=== PATIENT | male | born 2000 | race Caucasian/White ===

== ENCOUNTER 2023-10-24 21:53 | Emergency (ER) | payer BC, SELFPAY ==
[2023-10-24 21:56] VITALS: BP 142/86
--- NOTE | 2023-10-24 23:07 | ED.GENMED ---
History of Present Illness
General
Chief Complaint: Head Injury
Time Seen by Provider: 10/24/23 22:35
Travel History
Have you had any contact with someone who has COVID-19?: No
Do you have any symptoms of coronavirus? Fever > 100 degrees, chills, cough, shortness of breath, sore throat, loss of taste or smell, muscle aches, or headache?: No
Past History
Past History
ED Past Medical History: Seizures (takes Keppra. Last seizure 2 years ago) and Other (headaches)
Social History
Tobacco: Non-smoker
Alcohol: Occasional
Personal: Single
Living: with family
Employment: Employed
Course
Orders/Labs/Results
Orders:
Orders
10/24/23 22:45
CT Head W/o Iv Contrast Urgent
Comment:
Reason For Exam: trauma
Vital Signs
Initial and Last Documented VS:
Initial Vital Signs
Temp Pulse Resp BP Pulse Ox
98.1 F 102 18 142/86 100
10/24/23 21:56 10/24/23 21:56 10/24/23 21:56 10/24/23 21:56 10/24/23 21:56
Last Documented Vital Signs
Temp Pulse Resp BP Pulse Ox
98.1 F 102 18 142/86 100
10/24/23 21:56 10/24/23 21:56 10/24/23 21:56 10/24/23 21:56 10/24/23 21:56
ED Attending Note
-
Portions of this chart may have been created with voice recognition software.� Occasional wrong word or��sound alike� substitutions may have occurred due to the inherent limitations of voice recognition software.
Discharge Plan
Departure
Prescriptions:
No Action
levetiracetam 500 MG tablet
500 mg PO BID Qty: 60 0RF
Referrals:
Morgan Quinn, DO [Family Provider] -
Interventions
Interventions:
*Risk Screen - Suicide Last Done: 10/24/23 21:56
*Neglect/Abuse Screening Last Done: 10/24/23 21:56
Discharge Date and Time
Print Language: MALAGASY
--- NOTE | 2023-10-24 23:08 | ED.GENMED ---
History of Present Illness
General
Chief Complaint: Head Injury
Source: patient
Exam Limitations: none
Time Seen by Provider: 10/24/23 22:35
Nursing documentation reviewed up to this point in time: agreed with
Travel History
Have you had any contact with someone who has COVID-19?: No
Do you have any symptoms of coronavirus? Fever > 100 degrees, chills, cough, shortness of breath, sore throat, loss of taste or smell, muscle aches, or headache?: No
History of Present Illness
History of Present Illness:
Collided with another player while playing basketball. Hit by other players elbow on back of head. No LOC. Complains of shooting head pain. Brought self to ED for eval.
Past History
Past History
ED Past Medical History: Seizures (takes Keppra. Last seizure 2 years ago) and Other (headaches)
Social History
Tobacco: Non-smoker
Alcohol: Occasional
Personal: Single
Living: with family
Employment: Employed
Review of Systems
Review of Systems
Allergies reviewed?: Yes
All Other Systems: ROS reviewed and negative except as documented in HPI and ROS
Constitutional: Reports no symptoms
EENT: Reports no symptoms
Respiratory: Reports no symptoms
Cardiac: Reports no symptoms
ABD/GI: Reports no symptoms
: Reports no symptoms
Musculoskeletal: Reports no symptoms
Skin: Reports no symptoms
Neurological: Reports headache
Psychiatric: Reports no symptoms
Phy Exam
General Physical Exam
General Presentation: well appearing and no apparent distress
General age: appears stated age
General Skin: warm and dry
General Habitus: normal
General Mental: alert
ENT Exam
ENT Exam: EOMI, TM's normal, neck supple and normocephalic
Eye Exam
Eye Exam: PERRL, EOMI, conjunctiva normal and globe normal
Neurological Exam
Neurological Exam: alert, oriented x3, CN II-XII intact, no motor deficits, no sensory deficits, speech normal and normal gait
John Coma Scale
Eye Opening: Spontaneous
Verbal Response: Oriented
Motor Response: Obeys Commands
GCS Total Score: 15
Mental
Mental Status: oriented to person, oriented to place, oriented to time and usual mental status
Describe Speech: normal speech
Cranial
Cranial Nerves: normal
EOM (CN3/4/6): intact
Motor
Seizure Activity: none
Gait: normal
Tremors: none
Other Movement Disorders: none
Right upper extremity: 4
Right lower extremity: 4
Left upper extremity: 4
Left lower extremity: 4
Bilateral upper extremities: 4
Bilateral lower extremities: 4
Sensory
Sensory Exam: intact
Cerebellar
Cerebellar Function: normal Romberg test
Musculoskeletal Exam
Musculoskeletal Exam: full ROM and neuro vasc intact
Skin Exam
Skin Exam: normal color, warm/dry and no rash
Psychiatric Exam
Psychiatric Exam: normal mood/affect
Course
Orders/Labs/Results
Orders:
Orders
10/24/23 22:45
CT Head W/o Iv Contrast Urgent
Comment:
Reason For Exam: trauma
Vital Signs
Initial and Last Documented VS:
Initial Vital Signs
Temp Pulse Resp BP Pulse Ox
98.1 F 102 18 142/86 100
10/24/23 21:56 10/24/23 21:56 10/24/23 21:56 10/24/23 21:56 10/24/23 21:56
Last Documented Vital Signs
Temp Pulse Resp BP Pulse Ox
98.1 F 88 18 134/83 100
10/24/23 21:56 10/24/23 23:48 10/24/23 21:56 10/24/23 23:48 10/24/23 21:56
*Radiology
Radiology exam reviewed: radiology read reviewed
*Pulse Oximetry
Patient hypoxic: no
*Critical Care Note
Total Time (30-74mins, 75-104mins- exclusive of procedures): Not Applicable
ED Attending Note
-
Portions of this chart may have been created with voice recognition software.� Occasional wrong word or��sound alike� substitutions may have occurred due to the inherent limitations of voice recognition software.
Discharge Plan
Departure
Patient Disposition: Home (Routine Discharge)
Date of Disposition: 10/24/23
Time of Disposition: 23:39
Patient with high blood pressure during this ER visit?: No
Condition: Good
Covid-19: Not Applicable
Discharge Problem:
Head injury
Instructions: Head Injury in Adults (DC), Contusion (DC)
Prescriptions:
No Action
levetiracetam 500 MG tablet
500 mg PO BID Qty: 60 0RF
Referrals:
Morgan Quinn, DO [Family Provider] - Tomorrow
Interventions
Interventions:
*Risk Screen - Suicide Last Done: 10/24/23 21:56
*General Assessment Last Done: 10/24/23 23:46
*Neglect/Abuse Screening Last Done: 10/24/23 21:56
*Nursing Disposition Last Done: 10/24/23 23:48
ED- Neurological Assessment Last Done: 10/24/23 23:13
ED-Skin Assessment Last Done: 10/24/23 23:13
Discharge Date and Time
Discharge Date/Time: 10/24/23 23:48
Print Language: ICELANDIC
[2023-10-24 23:46] VITALS: BP 134/83
[2023-10-24 23:48] VITALS: BP 134/83
== END 2023-10-24 23:48 | disposition home or self-care (01) ==
LOC: EMR 21:53
PROVIDERS: EMERGENCY PHYSICIAN Emergency Medicine; FAMILY PHYSICIAN Family Medicine
DX: S09.90XA Unspecified injury of head, initial encounter (principal); W50.0XXA Accidental hit or strike by another person, initial encounter; Y93.67 Activity, basketball
CPT/HCPCS: 99284; 70450

== ENCOUNTER 2024-02-07 08:13 | Emergency (ER) | payer BC, SELFPAY ==
[2024-02-07 08:15] VITALS: BP 148/95
--- NOTE | 2024-02-07 08:34 | ED.GENMED ---
History of Present Illness
General
Chief Complaint: Skin Surface Trauma
Source: patient
Exam Limitations: none
Time Seen by Provider: 02/07/24 08:21
Nursing documentation reviewed up to this point in time: agreed with
History of Present Illness
History of Present Illness:
23 y/o M with h/o epilepsy
here with LLE abrasion after sliding into base 2 nights ago; pt says there was a little gravel on the ground
he has been cleaning with soap and water adn applying neosporin
he woke up with weeping clear/serous fluid an dis concerned it is infected
no fever, chills, swelling, weakness.
Past History
Past History
ED Past Medical History: Seizures (takes Keppra. Last seizure 2 years ago) and Other (headaches)
Social History
Tobacco: Non-smoker
Alcohol: Occasional
Personal: Single
Living: with family
Employment: Employed
Review of Systems
Review of Systems
Allergies reviewed?: Yes
All Other Systems: Not applicable
Phy Exam
Physical Exam
Physical Exam:
GENERAL: Alert , in no apparent distress, comfortable at rest
HEAD: NCAT
CV: 2+ DP PULSES B/L
NEUROLOGICAL: Alert and oriented, no focal neuro deficits, , 5/5 strength, sensation intact, ambulation slight limp right leg
SKIN: Warm and dry,
approx 12 x 8 cm abrasion to left anterior lower leg; the center has weeping serous fluid from it
no surrounding erythema
MUSCULOSKELETAL: left lower extremity not swollen, nontender
anterior lower leg abrasion
PSYCH: Normal and appropriate interaction.
Course
Vital Signs
Initial and Last Documented VS:
Initial Vital Signs
Temp Pulse Resp BP Pulse Ox
98.4 F 60 18 148/95 99
02/07/24 08:15 02/07/24 08:15 02/07/24 08:15 02/07/24 08:15 02/07/24 08:15
Last Documented Vital Signs
Temp Pulse Resp BP Pulse Ox
98.4 F 60 18 148/95 99
02/07/24 08:15 02/07/24 08:15 02/07/24 08:15 02/07/24 08:15 02/07/24 08:15
MDM/Problems Addressed
Differential Diagnosis Includes:
abrasion, infection
MDM/Problems Addressed:
23 y/o M healthy
h/o epilepsy on meds
left anterior lower leg abrasion 2 days ago
now having weeping clear fluid and pt concerned about infection
some pain melvin with walking or dependency
no sewlling
no fever
no surrounding erythema
central serous fluid that is c/w normal healing
no signs of cellulitis
irrigated with saline, dressed with bacitracin nonstick dressing and kerlix
wound care instructions
keflex to tstart if looking more infected
tetanus last 2 years ago
*Critical Care Note
Total Time (30-74mins, 75-104mins- exclusive of procedures): Not Applicable
ED Attending Note
-
Portions of this chart may have been created with voice recognition software.� Occasional wrong word or��sound alike� substitutions may have occurred due to the inherent limitations of voice recognition software.
Discharge Plan
Departure
Patient Disposition: Home (Routine Discharge)
Date of Disposition: 02/07/24
Time of Disposition: 08:36
Patient with high blood pressure during this ER visit?: No
Condition: Fair
Covid-19: Not Applicable
Discharge Problem:
Abrasion, left lower leg, initial encounter
Instructions: Wound Care (DC)
Prescriptions:
New
cephalexin 500 mg capsule
500 mg PO Q8H Qty: 21 0RF
No Action
levetiracetam 500 MG tablet
500 mg PO BID Qty: 60 0RF
Activity Restrictions/Additional Instructions:
Clean your abrasions twice a day with mild soap and water. Dry and apply Neosporin and a dressing while it is weeping. You can leave it open to the air if you are not going to get it dirty. Watch for signs of infection like surrounding redness,
swelling, cloudy drainage, fevers or chills and you can start the antibiotic as prescribed 3 times a day for 7 days. But this fluid leaking from your wound is typical healing
Interventions
Interventions:
*Risk Screen - Suicide Last Done: 02/07/24 08:15
*General Assessment Last Done: 02/07/24 08:15
*Neglect/Abuse Screening Last Done: 02/07/24 08:15
ED-Skin Assessment Last Done: 02/07/24 08:43
Discharge Date and Time
Print Language: HUNGARIAN
== END 2024-02-07 09:24 | disposition home or self-care (01) ==
LOC: EMR 08:13
PROVIDERS: EMERGENCY PHYSICIAN Student in an Organized Health Care Education/Training Program; FAMILY PHYSICIAN Family Medicine
DX: S80.812A Abrasion, left lower leg, initial encounter (principal); W18.39XA Other fall on same level, initial encounter; Y93.64 Activity, baseball; Y92.320 Baseball field as the place of occurrence of the external cause; G40.909 Epilepsy, unspecified, not intractable, without status epilepticus; Z86.16 Personal history of COVID-19; Z79.899 Other long term (current) drug therapy
CPT/HCPCS: 99283

== ENCOUNTER → 2024-11-22 16:11 | Outpatient (REF) | payer BC, SELFPAY | LOC: RAD 16:11 | PROVIDERS: ATTENDING PHYSICIAN Family Medicine | DX: R05.1 Acute cough (principal) | CPT/HCPCS: 71046 ==

== ENCOUNTER 2025-06-21 02:10 | Emergency (ER) | payer BC, SELFPAY ==
[2025-06-21 02:11] VITALS: BP 157/97
--- NOTE | 2025-06-21 02:52 | ED.GENMED ---
History of Present Illness
General
Chief Complaint: Nose Bleed
Source: patient
Exam Limitations: none
Time Seen by Provider: 06/21/25 02:20
Nursing documentation reviewed up to this point in time: agreed with
History of Present Illness
History of Present Illness:
Patient with history of seizure disorder on Keppra, presents ED secondary to sudden onset headache, along with bloody nose, while he was at [facility] with his friends. Denies trauma. Denies fever or chills. Denies nausea or vomiting. Denies
dizziness. Denies blurred vision. Denies loss of sensation or weakness. Patient states that he noticed nosebleed, when he was wiping his nose. Denies neck pain. Denies dizziness. Denies nausea or vomiting. Denies loss of sensation or
weakness. Denies difficulty with speech. Denies difficulty with ambulation. Denies previous history of similar symptoms. Denies family history of aneurysm. Patient states that he does have headache intermittently, with family history of
migraine headaches. At the time evaluation ED, patient states that nosebleed has stopped completely and his headache has improved significantly. Of note, he has had difficult time obtaining outpatient appointment with his neurologist.
Past History
Past History
ED Past Medical History: Seizures (takes Keppra. Last seizure 2 years ago) and Other (headaches)
Social History
Tobacco: Non-smoker
Alcohol: Occasional
Personal: Single
Living: with family
Employment: Employed
Review of Systems
Review of Systems
Allergies reviewed?: Yes
All Other Systems: ROS reviewed and negative except as documented in HPI and ROS
Constitutional: Reports no symptoms
EENT: Reports other (epistaxis)
ABD/GI: Reports no symptoms
Musculoskeletal: Reports no symptoms
Skin: Reports no symptoms
Neurological: Reports headache; Denies dizzy, weakness or numbness
Phy Exam
Physical Exam
Physical Exam:
Physical Exam
General: no apparent distress, not acutely ill. afebrile
Head: nc/at. eomi
Nose: small area along left nasal septum with clot formation
Neck: supple. no meningeal signs.
Abdomen: normal bowel sounds. not tender.
Neuro: alert and oriented x 3. no focal neurological deficits
Skin: no rash
Psychiatric: well kept. interactive and cooperative
Extremities: no edema. no calf tenderness.
Course
Orders/Labs/Results
Orders:
06/21/25 03:00
06/21/25 03:00
Vital Signs
Initial and Last Documented VS:
Initial Vital Signs
Temp Pulse Resp BP Pulse Ox
98.3 F 72 16 157/97 100
06/21/25 02:11 06/21/25 02:11 06/21/25 02:11 06/21/25 02:11 06/21/25 02:11
Last Documented Vital Signs
Temp Pulse Resp BP Pulse Ox
98.3 F 65 18 149/95 98
06/21/25 02:11 06/21/25 02:55 06/21/25 02:55 06/21/25 02:55 06/21/25 02:55
MDM/Problems Addressed
MDM/Problems Addressed:
Patient is hemodynamically stable and neurologically intact, without any further bleeding noted. Patient's presenting symptoms nonspecific, unclear, if headache is associated with headache or independent. Nonetheless, as patient is without any
symptoms, there is no indication for further workup at this time. However, strongly recommend that the patient call his neurologist for reevaluation, especially in light of his underlying seizure disorder. Patient and mother expressed
understanding at time of discharge.
*Pulse Oximetry
SaO2: 100
Oxygen Mode of Delivery: Room air
Patient hypoxic: no
*Critical Care Note
Total Time (30-74mins, 75-104mins- exclusive of procedures): Not Applicable
ED Attending Note
-
Portions of this chart may have been created with voice recognition software.� Occasional wrong word or��sound alike� substitutions may have occurred due to the inherent limitations of voice recognition software.
Discharge Plan
Departure
Patient Disposition: Home (Routine Discharge)
Date of Disposition: 06/21/25
Time of Disposition: 02:52
Patient with high blood pressure during this ER visit?: Yes
Condition: Good
Discharge Problem:
Headache, Epistaxis
Instructions: Nosebleeds (DC), Headache in adults - ED (DC)
Prescriptions:
No Action
levetiracetam 500 MG tablet
500 mg PO BID Qty: 60 0RF
cephalexin 500 mg capsule
500 mg PO Q8H Qty: 21 0RF
Activity Restrictions/Additional Instructions:
As discussed, please follow-up with your primary care physician and neurologist for reevaluation. Please return to ED with worsening symptoms.
Interventions
Interventions:
*Risk Screen - Suicide Last Done: 06/21/25 02:11
*General Assessment Last Done: 06/21/25 02:11
*Neglect/Abuse Screening Last Done: 06/21/25 02:11
*ED- Fall Risk Assessment Last Done: 06/21/25 02:53
*ED COVID-19 Vaccine History Last Done: 06/21/25 02:53
*ED Influenza Vaccine History Last Done: 06/21/25 02:53
*Nursing Disposition Last Done: 06/21/25 03:00
ED-EENT Assessment Last Done: 06/21/25 02:54
Discharge Date and Time
Discharge Date/Time: 06/21/25 03:04
Print Language: WALLISIAN
[2025-06-21 02:55] VITALS: BP 149/95
== END 2025-06-21 03:04 | disposition home or self-care (01) ==
LOC: EMR 02:10
PROVIDERS: EMERGENCY PHYSICIAN Emergency Medicine; FAMILY PHYSICIAN Family Medicine
DX: R04.0 Epistaxis (principal); R51.9 Headache, unspecified; R42 Dizziness and giddiness; R03.0 Elevated blood-pressure reading, without diagnosis of hypertension; G40.909 Epilepsy, unspecified, not intractable, without status epilepticus; Z79.899 Other long term (current) drug therapy; Z86.16 Personal history of COVID-19
CPT/HCPCS: 99282